=== PATIENT | male | born 1940 | race American Indian/Alaskan Native ===

== ENCOUNTER 2018-05-16 14:19 | Emergency (ER) | payer MEDICARE, OTHER ==
[2018-05-16 14:27] VITALS: BP 162/86
[2018-05-16] MEDS ORDERED: IBUPROFEN PO ONE (15:38)
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
--- NOTE | 2018-05-16 16:30 | XRay Report ---
FINAL REPORT EXAM: XR SPINE LUMBOSACRAL 2-3V HISTORY: LOW BACK PAIN TECHNIQUE: Frontal and lateral views lumbar spine and coned-down lateral view lumbosacral junction Comparison: None FINDINGS: Bony alignment is normal. The vertebral heights are maintained. There is multiple level Schmorl's nodes. There is anterior endplate osteophyte formation at the L4 and L5 levels. There appears to be foraminal stenosis at the L4-L5 and L5-S1 level secondary to spondylitic change. The paraspinous soft tissues are unremarkable. IMPRESSION: 1. 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 If further imaging is required, MRI may be helpful.
== END 2018-05-16 16:48 | disposition home or self-care (01) ==
LOC: ED 14:19
DX: S39.012A Strain of muscle, fascia and tendon of lower back, initial encounter (principal); I10 Essential (primary) hypertension; E11.9 Type 2 diabetes mellitus without complications; V89.2XXA Person injured in unspecified motor-vehicle accident, traffic, initial encounter; Y93.89 Activity, other specified; Y99.8 Other external cause status; Y92.410 Unspecified street and highway as the place of occurrence of the external cause
CPT/HCPCS: 72100; 99283